=== PATIENT | male | born 1950 ===

== ENCOUNTER 2019-02-19 08:39 | Emergency (ER) | payer MEDICARE, MEDICAID ==
[2019-02-19 09:02] VITALS: TEMP 98.4
--- NOTE | 2019-02-19 09:29 | C.PDOC ---
History Of Present Illness 68 year old male presents to ED with complaint of sore throat for the past 2 days. He describes the his sore throat as scratchy. Patient states that he has also been experiencing occasional rhinorrhea. He denies cough, fever, and nasal congestion. SORE THROAT X 2 DAYS. NO FEVER. +SCRATCHY. +OCC RHINORRHEA. NO OTHER ASSOC SX EXAM NONTOXIC HEENT MIN THROAT ERYTHEMA NO SWELL, EXUDATE; NOSE CLEAR; NO STRIDOR, DROOL REMAINDER NEG MDM PHARYNGITIS NO FEVER. VIRAL, POST NASAL DRIP? Time Seen by Provider: 02/19/19 09:14 Chief Complaint (Nursing): ENT Problem History Per: Patient History/Exam Limitations: no limitations Onset/Duration Of Symptoms: Days (2) Current Symptoms Are (Timing): Still Present Location Of Pain: Throat Associated Symptoms: Sore Throat, Sinus Drainage. denies: Fever, Chills, Cough, Sputum, Nasal Congestion Ear Symptoms: Bilateral: None Past Medical History Reviewed: Historical Data, Nursing Documentation, Vital Signs Vital Signs: Last Vital Signs Temp 98.4 F 02/19/19 09:00 Pulse 98 H 02/19/19 09:00 Resp 20 02/19/19 09:00 BP 131/80 02/19/19 09:00 Pulse Ox 97 02/19/19 09:00 Primary Care Provider: Non [facility] Provider, - Medical History PMH: No Chronic Diseases Surgical History: No Surg Hx Family History: States: Unknown Family Hx - Social History Hx Tobacco Use: No Hx Alcohol Use: No Hx Substance Use: No Review Of Systems Except As Marked, All Systems Reviewed And Found Negative. ENT: Positive for: Nose Congestion, Throat Pain Physical Exam - Physical Exam Appears: Well, Non-toxic, No Acute Distress Skin: Normal Color, Warm, Dry Head: Atraumatic, Normacephalic Eye(s): bilateral: Normal Inspection Ear(s): Bilateral: Normal Nose: Normal, No Discharge Oral Mucosa: Moist Throat: Erythema (minimal ), No Exudate, No Drooling, No Other (swelling) Neck: Normal ROM, Supple Chest: Symmetrical, No Deformity Cardiovascular: Rhythm Regular, No Murmur Respiratory: No Accessory Muscle Use, No Rales, No Rhonchi, No Stridor, No Wheezing, Other (NARD) Gastrointestinal/Abdominal: Soft, No Tenderness Extremity: Capillary Refill (<2 seconds) Extremity: Bilateral: Atraumatic, Normal Color And Temperature, Normal ROM Pulses: Left Radial: Normal, Right Radial: Normal Neurological/Psych: Oriented x3, Normal Speech, Normal Cognition ED Course And Treatment O2 Sat by Pulse Oximetry: 97 (in RA) Pulse Ox Interpretation: Normal Medical Decision Making Medical Decision Making: MDM: Pharyngitis. No fever. Viral, post nasal drip. Patient prescribed decadron and motrin. Discussed plan with patient who expresses understanding. All questions answered and there is agreement with the plan to discharge home with instructions. Patient stable for discharge. Return if symptoms persist or worsen. Disposition Counseled Patient/Family Regarding: Diagnosis, Need For Followup, Rx Given - Disposition Referrals: YOUR,PMD [Other] Disposition: HOME/ ROUTINE Disposition Time: 09:31 Condition: GOOD Prescriptions: Dexamethasone [Decadron] 12 mg PO ONCE #2 tablet Ibuprofen [Motrin] 600 mg PO Q6 #30 tab Instructions: Sore Throat, Adult (DC) Forms: [employer] (Niuean) Print Language: BELIZEAN - Clinical Impression Clinical Impression: Sore throat symptom - Scribe Statement The provider has reviewed the documentation as recorded by the Scribe (Irina Delgado) All medical record entries made by the Scribe were at my direction and personally dictated by me. I have reviewed the chart and agree that the record accurately reflects my personal performance of the history, physical exam, medical decision making, and the department course for this patient. I have also personally directed, reviewed, and agree with the discharge instructions and disposition.
[2019-02-19 09:50] VITALS: BP 120/70; PULSE 72; RESP 19
[2019-02-19 10:13] VITALS: O2SAT 97
== END 2019-02-19 09:50 | disposition home or self-care (01) ==
LOC: C.ER 08:39
DX: J02.9 Acute pharyngitis, unspecified (principal)